=== PATIENT | male | born 1975 | race Caucasian/White ===

== ENCOUNTER → 2022-06-29 | Outpatient (CLI) | payer MEDICARE ==
[~2022-06-29] MED LIST: IOHEXOL 350 MG/ML 100ML INFUS..BTL IV ONE
== END | disposition home or self-care (01) ==
LOC: RAH 10:00
PROVIDERS: ATTEND Family Medicine
DX: N20.0 Calculus of kidney (principal); R18.8 Other ascites; K76.89 Other specified diseases of liver
CPT/HCPCS: 74178; Q9967